=== PATIENT | female | born 1985 | race African-American/Black ===

== ENCOUNTER 2017-04-20 15:02 | Emergency (ER) | payer SELFPAY ==
[~2017-04-20] VITALS: Ht 167.6 cm; Wt 123.0 kg
[2017-04-20 15:30] VITALS: BP 97/61
== END 2017-04-20 17:50 | disposition left against medical advice (07) ==
LOC: EDBD → ER 15:51
DX: M79.673 Pain in unspecified foot (principal); Z53.21 Procedure and treatment not carried out due to patient leaving prior to being seen by health care provider

== ENCOUNTER 2017-04-23 20:03 | Emergency (ER) | payer SELFPAY ==
[~2017-04-23] VITALS: Ht 167.6 cm; Wt 56.0 kg
[2017-04-23 20:32] VITALS: BP 106/59
== END 2017-04-23 21:25 | disposition home or self-care (01) ==
LOC: ER 20:48
DX: Z36.3 Encounter for antenatal screening for malformations (principal)
CPT/HCPCS: 99281